=== PATIENT | female | born 1960 | race Caucasian/White ===

== ENCOUNTER → 2016-05-12 | Outpatient (CLI) | payer BC ==
[2014-10-25 14:24] VITALS: BP 149/75
[~2016-05-12] MED LIST: ALPR0.25 PO; CYCL10TA2 PO; DILT240C2 PO; ESOM20CA30 PO; FURO-68 PO; GABA-585 PO; HYDR-2666 PO; LEVO500T38 PO; METF850T2 PO; MOME13HF IH; MOME17SP NS; MONT10TA6 PO; ONDA4TAB7 PO; VENL100T PO
--- NOTE | 2016-05-12 17:17 | KCIC ---
PROCEDURE MR of the left ankle HISTORY Left Achilles tendinitis. Achilles pain. Decreased weight-bearing since January 2016. No known injury. TECHNIQUE Standard noncontrast images are obtained. COMPARISON None FINDINGS Mild thickening and increased signal within the distal Achilles tendon compatible with mild tendinosis. Mild intra substance degenerative type signal but no partial or full-thickness tear. Small effusion within the pre Achilles bursa. Mild soft tissue edema surrounding the distal Achilles tendon. The peroneal tendons are intact and are not dislocated. The anterior talofibular ligament is poorly defined suggesting some scarring but no evidence of acute tear. Calcaneofibular and posterior talofibular ligaments are intact. The anterior inferior tibiofibular ligament is intact. Posterior tibial and flexor tendons are intact. No acute medial ligament injury but there is chronic scarring of the deep fibers of the deltoid ligament. Anterior tibial and extensor tendons are intact. No acute plantar fasciitis. There is mild enthesophyte formation at the plantar aponeurosis attachment. Subtalar joints are patent. Tarsal sinus intact. No significant bone lesion or acute fracture. There is some mild benign marrow change within the distal calcaneus. No talar dome osteochondral lesion. No significant joint effusion. Mild degenerative osteoarthritis is identified. Mild dorsal spurring at the talonavicular joint. There appears to be some loss of the normal longitudinal arch of the foot. IMPRESSION 1. Mild distal Achilles tendinosis without measurable tear or rupture. 2. Anterior talofibular ligament scarring without acute rupture. 3. Scarring of the deep fibers of the medial deltoid ligament. Electronically signed by: Marcos Velez MD (May 12, 2016 17:15:49)
== END | disposition home or self-care (01) ==
LOC: KCIC MRI 16:04
PROVIDERS: ATTEND Podiatrist
DX: M76.62 Achilles tendinitis, left leg (principal); M19.072 Primary osteoarthritis, left ankle and foot; R60.0 Localized edema
CPT/HCPCS: 73721

== ENCOUNTER 2016-10-09 17:41 | Emergency (ER) | payer BC ==
[~2016-10-09 17:41] MED LIST changes: -HYDR-2666 PO; +HYDR-2758 PO; -LEVO500T38 PO; +LEVO500T59 PO
[2016-10-09] MEDS ORDERED: IV NORMAL SALINE 1000ML BAG 1,000 ML IV ONE (18:00)
[2016-10-09] MEDS ORDERED: MORPHINE SULFATE 10 MG/ML VIAL. IV ONE (18:00)
[2016-10-09] MEDS ORDERED: diazePAM 5 MG TABLET PO ONE (18:00)
[2016-10-09 18:15] LABS: BILIRUBIN,URINE NEGATIVE (NEG); GLUCOSE,URINE NEGATIVE (NEG); NITRITE,URINE NEGATIVE (NEG); PROTEIN,URINE NEGATIVE (NEG-TRACE); UROBILINOGEN,URINE 0.2 mg/dL (0.2 mg/dL)
[2016-10-09 18:29] LABS: BASO # 0.2 x10^3/uL (0.0-0.2); BASO % 1 % (0-3); EOS % 1 % (0-3); HEMATOCRIT 35.7 % (36.0-47.0); HEMOGLOBIN 11.7 g/dL (12.0-15.5); LYMPH # 2.6 x10^3/uL (1.0-4.8); LYMPH % 22 % (24-48); MEAN CORPUSCULAR HEMOGLOBIN 27 pg (25-35); MEAN CORPUSCULAR HGB CONC 33 g/dL (31-37); MEAN CORPUSCULAR VOLUME 83 fL (79-100); MONO % 8 % (0-9); NEUT % 68 % (31-73); PLATELET COUNT 299 x10^3/uL (140-400); RED BLOOD COUNT 4.31 x10^6/uL (3.50-5.40); RED CELL DISTRIBUTION WIDTH 15.8 % (11.5-14.5)
[2016-10-09] MEDS ORDERED: CONTRAST GIVEN MC PRN (18:30)
[2016-10-09] MEDS ORDERED: IOHEXOL 300 MG/ML 75 ML VIAL IV ONE (18:30)
[2016-10-09 18:36] LABS: BACTERIA,URINE FEW /HPF (0-FEW); RBC,URINE 0 /HPF (0-2); SQUAMOUS EPITHELIAL CELL,UR MOD /LPF
[2016-10-09 18:44] LABS: CALCIUM 9.5 mg/dL (8.5-10.1); CREATININE 0.8 mg/dL (0.6-1.0); GFR 74.2; POTASSIUM 3.5 mmol/L (3.5-5.1)
[2016-10-09] MEDS ORDERED: oxyCODONE/APAP 5/325 1 TAB TABLET PO ONE (18:45)
[2016-10-09 18:52] LABS: ALBUMIN 3.4 g/dL (3.4-5.0); ALBUMIN/GLOBULIN RATIO 0.9 (1.0-1.7); TOTAL BILIRUBIN 0.2 mg/dL (0.2-1.0); TOTAL PROTEIN 7.4 g/dL (6.4-8.2)
--- NOTE | 2016-10-09 19:36 | RAD ---
Exam performed: CT scan of the abdomen and pelvis with contrast Clinical Indication: Left flank pain for 3 days possible diverticulitis Date of Service: 10/09/2016 comparison: None available Technique: Contiguous helical acquisitions are obtained from the lung bases to the pelvis during intravenous administration of [75 cc of Omnipaque 300]. Sagittal and coronal reformatted images were obtained and reviewed. CT abdomen findings: The lung bases appear essentially clear. Visualized heart is normal. The liver, spleen and pancreas appears unremarkable. Cholecystectomy. Both adrenal glands and bilateral kidneys appear normal with symmetric excretion of contrast via both kidneys. The small bowel loops appear nondilated and unremarkable. Aorta is normal in caliber. There is no retroperitoneal lymphadenopathy or mass lesions. Scattered stool in the colon. No bowel related inflammatory stranding is noted. No obvious stranding is seen in the pericecal region. CT pelvis findings: The pelvic bowel loops are nondilated and unremarkable. Sigmoid diverticulosis . Questionable minimal inflammatory changes in the left lower pelvis The urinary bladder is well distended and normal . No pelvic lymphadenopathy or mass lesion seen. Interrogation of bone windows demonstrates mild loss of height of T11 vertebral body. Sagittal and coronal reformatted images were obtained and reviewed which demonstrate no additional findings. Impression abdomen and pelvis : 1. No acute intra-abdominal or pelvic process is detected. 2. Diffuse colonic diverticulosis with an area of questionable inflammatory changes in the left lower pelvis. Early diverticulitis suspected. 3. Mild loss of height of T11 vertebral body suggesting compression fracture indeterminate age. Correlation with clinical findings and any previous x-rays if available would be useful. If not MRI of the thoracolumbar spine may be obtained to rule out possibility of acute compression fracture. RS Compliance Statement: One or more of the following individualized dose reduction techniques were utilized for this examination: 1. Automated exposure control 2. Adjustment of the mA and/or kV according to patient size 3. Use of iterative reconstruction technique Electronically signed by: Lona Garduno MD (10/09/2016 7:33 PM) [id number]
[2016-10-09] MEDS ORDERED: OXYC-323 PO (20:28)
--- NOTE | 2016-10-09 20:28 | PHYS DOC ---
Past Medical History Past Medical History: Arthritis, Asthma, Hypertension, Other Additional Past Medical Histor: neuropathy; immune deficiency; acid reflux; arrhythmia Past Surgical History: Cholecystectomy, , Tonsillectomy, Other Additional Past Surgical Histo: tubes in ears, L knee sx, cyst removal from head Alcohol Use: None Drug Use: None Adult General Chief Complaint Chief Complaint: ABDOMINAL PAIN HPI HPI Patient is a 56 year old female with history of autoimmune diseases currently on infusion, hypertension, diverticulitis, chronic low back pain, who presents today complaining of left flank/lower rib pain that began 3 days ago. Patient states she was seen by the PCP they did some lab work and her white count was slightly elevated. She states the PCP is concerned she could have diverticulitis and send her to the ED to be examined. Patient denies any nausea vomiting. Denies any urgency frequency or dysuria. Denies any diarrhea. Patient states the pain is worse on movement and deep breathing. She states she has been packing boxes in readiness for moving for the last 2 weeks. She states she has not injured herself. Review of Systems Review of Systems Constitutional: Denies fever or chills [] Eyes: Denies change in visual acuity, redness, or eye pain [] HENT: Denies nasal congestion or sore throat [] Respiratory: Left lower rib pain] Cardiovascular: No additional information not addressed in HPI [] GI: Left flank pain, : Denies dysuria or hematuria [] Musculoskeletal: Denies back pain or joint pain [] Integument: Denies rash or skin lesions [] Neurologic: Denies headache, focal weakness or sensory changes [] Endocrine: Denies polyuria or polydipsia [] Current Medications Current Medications Current Medications Medications (Trade) Dose Ordered Sig/[facility] Start Time Stop Time Status Last Admin Dose Admin Diazepam (Valium) 5 mg 1X ONCE 10/09/16 18:00 10/09/16 18:02 DC 10/09/16 18:26 5 MG Info (Do NOT chart on this entry -- for MONITORING) 1 each PRN DAILY PRN 10/09/16 18:30 10/11/16 18:29 Iohexol (Omnipaque 300 Mg/ml) 75 ml 1X ONCE 10/09/16 18:30 10/09/16 18:31 DC 10/09/16 18:53 75 ML Morphine Sulfate 5 mg 1X ONCE 10/09/16 18:00 10/09/16 18:02 DC Oxycodone/ Acetaminophen (Percocet 5/325) 1 tab 1X ONCE 10/09/16 18:45 10/09/16 18:46 DC Sodium Chloride 1,000 ml @ 1,000 mls/hr 1X ONCE 10/09/16 18:00 10/09/16 18:59 DC 10/09/16 18:27 1,000 MLS/HR Allergies Allergies Allergies Coded Allergies Type Severity Reaction Last Updated Verified Penicillins Allergy Intermediate Hives 06/13/13 Yes Sulfa (Sulfonamide Antibiotics) Allergy Intermediate LOSS OF MOTOR CONTROL Yes Physical Exam Physical Exam Constitutional: Well developed, well nourished, no acute distress, non-toxic appearance. [] HENT: Normocephalic, atraumatic, bilateral external ears normal, oropharynx moist, no oral exudates, nose normal. [] Eyes: PERRLA, EOMI, conjunctiva normal, no discharge. [] Neck: Normal range of motion, no tenderness, supple, no stridor. [] Cardiovascular:Heart rate regular rhythm, no murmur [] Lungs & Thorax: Bilateral breath sounds clear to auscultation [] Abdomen: Bowel sounds normal, soft, no tenderness, no masses, no pulsatile masses. [] Skin: Warm, dry, no erythema, no rash. [] Back: No tenderness, no CVA tenderness. [] Extremities: No tenderness, no cyanosis, no clubbing, ROM intact, no edema. [] Neurologic: Alert and oriented X 3, normal motor function, normal sensory function, no focal deficits noted. [] Psychologic: Affect normal, judgement normal, mood normal. [] Current Patient Data Vital Signs Vital Signs Date Time Temp Pulse Resp B/P (MAP) Pulse Ox O2 Delivery O2 Flow Rate FiO2 10/09/16 18:04 98.3 93 18 154/71 (98) 97 Room Air 98.3 Lab Values Laboratory Tests Test 10/09/16 18:00 10/09/16 18:20 Urine Collection Type Unknown Urine Color Yellow Urine Clarity Clear Urine pH 7.0 Urine Specific [place] 1.015 Urine Protein Negative mg/dL (NEG-TRACE) Urine Glucose (UA) Negative mg/dL (NEG) Urine Ketones (Stick) Negative mg/dL (NEG) Urine Blood Negative (NEG) Urine Nitrite Negative (NEG) Urine Bilirubin Negative (NEG) Urine Urobilinogen Dipstick 0.2 mg/dL (0.2 mg/dL) Urine Leukocyte Esterase Negative (NEG) Urine RBC 0 /HPF (0-2) Urine WBC 1-4 /HPF (0-4) Urine Squamous Epithelial Cells Mod /LPF Urine Bacteria Few /HPF (0-FEW) White Blood Count 12.0 x10^3/uL (4.0-11.0) H Red Blood Count 4.31 x10^6/uL (3.50-5.40) Hemoglobin 11.7 g/dL (12.0-15.5) L Hematocrit 35.7 % (36.0-47.0) L Mean Corpuscular Volume 83 fL (79-100) Mean Corpuscular Hemoglobin 27 pg (25-35) Mean Corpuscular Hemoglobin Concent 33 g/dL (31-37) Red Cell Distribution Width 15.8 % (11.5-14.5) H Platelet Count 299 x10^3/uL (140-400) Neutrophils (%) (Auto) 68 % (31-73) Lymphocytes (%) (Auto) 22 % (24-48) L Monocytes (%) (Auto) 8 % (0-9) Eosinophils (%) (Auto) 1 % (0-3) Basophils (%) (Auto) 1 % (0-3) Neutrophils # (Auto) 8.1 x10^3uL (1.8-7.7) H Lymphocytes # (Auto) 2.6 x10^3/uL (1.0-4.8) Monocytes # (Auto) 0.9 x10^3/uL (0.0-1.1) Eosinophils # (Auto) 0.2 x10^3/uL (0.0-0.7) Basophils # (Auto) 0.2 x10^3/uL (0.0-0.2) Sodium Level 142 mmol/L (136-145) Potassium Level 3.5 mmol/L (3.5-5.1) Chloride Level 103 mmol/L (98-107) Carbon Dioxide Level 28 mmol/L (21-32) Anion Gap 11 (6-14) Blood Urea Nitrogen 10 mg/dL (7-20) Creatinine 0.8 mg/dL (0.6-1.0) Estimated GFR (Cockcroft-Gault) 74.2 BUN/Creatinine Ratio 13 (6-20) Glucose Level 125 mg/dL (70-99) H Calcium Level 9.5 mg/dL (8.5-10.1) Total Bilirubin 0.2 mg/dL (0.2-1.0) Aspartate Amino Transferase (AST) 20 U/L (15-37) Alanine Aminotransferase (ALT) 26 U/L (14-59) Alkaline Phosphatase 149 U/L (46-116) H Total Protein 7.4 g/dL (6.4-8.2) Albumin 3.4 g/dL (3.4-5.0) Albumin/Globulin Ratio 0.9 (1.0-1.7) L Lipase 78 U/L (73-393) Laboratory Tests 10/09/16 18:20 Laboratory Tests 10/09/16 18:20 EKG EKG [] Radiology/Procedures Radiology/Procedures [] Course & Med Decision Making Course & Med Decision Making Pertinent Labs and Imaging studies reviewed. (See chart for details) This is a 56-year-old female patient with history of autoimmune disease, hypertension and diverticulitis who was sent to the ED by PCP for CT scan and lab work as well as chest x-ray due to ongoing left flank/lower rib pain. CBC with a WBC of 12.0, CMP with nothing really acute, urine negative for infection. Left rib pain/PA chest [address] Seay were negative for any acute findings. CT of the abdomen and pelvic with IV contrast as interpreted by radiologist was noted for possible early diverticulitis. Patient does have loss of height in T11 vertebral body suggesting compression fracture indeterminate age. Patient does not have thoracic back pain. She states she has history of chronic lumbar pain and has no injury. Recommended she follows up with her PCP and they can do an outpatient MRI for the thoracic spine. Patient states she already has a prescription for antibiotics called in to the local pharmacy by her PCP for diverticulitis. She was discharged with oxycodone for pain. Dragon Disclaimer Dragon Disclaimer This electronic medical record was generated, in whole or in part, using a voice recognition dictation system. Departure Departure Impression: Primary Impression: Diverticulitis Disposition: 01 HOME, SELF-CARE Condition: STABLE Referrals: APRIL SEBASTIAN MD (PCP) Follow-up with your doctor next week. Patient Instructions: Diverticulitis Additional Instructions: You were seen for left flank/lower rib pain, your CT shows you could have early diverticulitis. You have antibiotics at the local pharmacy, ensure you pick them up and take them as prescribed. Take the pain medicine as needed. Follow- up with your doctor next week. Come back to the ED if symptoms worsen. Scripts Oxycodone/Apap 5-325 (PERCOCET 5-325 MG TABLET) 1 Each Tablet 1-2 TAB PO Q4-6HRS, #10 TAB Prov: RADHA MERIDA APRN 10/09/16 Problem Qualifiers Primary Impression: Diverticulitis Diverticulitis site: unspecified part of intestinal tract Diverticulitis bleeding: without bleeding Diverticulitis complication: without perforation or abscess Qualified Codes: K57.92 - Diverticulitis of intestine, part unspecified, without perforation or abscess without bleeding RADHA MERIDA APRN Oct 09, 2016 20:28
[2016-10-09 20:30] VITALS: BP 128/58
--- NOTE | 2016-10-10 09:12 | RAD ---
Indication left chest pain. No history of trauma A single view of the chest as well as films targeted to left ribs were obtained. The chest is compared to an examination 07/29/2011. The heart and pulmonary vessels appear normal. The lungs are clear of acute infiltrates there is no pleural fluid or pneumothorax. Films of left ribs appear unremarkable. IMPRESSION: Normal single view of the chest. Normal plain films left ribs
== END 2016-10-09 21:00 | disposition home or self-care (01) ==
LOC: ER 17:41
DX: K57.92 Diverticulitis of intestine, part unspecified, without perforation or abscess without bleeding (principal); R07.81 Pleurodynia; M19.90 Unspecified osteoarthritis, unspecified site; J45.909 Unspecified asthma, uncomplicated; I10 Essential (primary) hypertension; G62.9 Polyneuropathy, unspecified; G89.29 Other chronic pain; Z88.0 Allergy status to penicillin; Z90.49 Acquired absence of other specified parts of digestive tract; Z88.2 Allergy status to sulfonamides
CPT/HCPCS: 36415; 71101; 74177; 80053; 81001; 83690; 85027; 96360; 99285; J7030; Q9967

== ENCOUNTER → 2016-11-02 | Outpatient (CLI) | payer BC ==
[2016-10-09 20:30] VITALS: BP 128/58
[~2016-11-02] MED LIST changes: +OXYC-323 PO
--- NOTE | 2016-11-02 13:51 | KCIC ---
Indication: Postmenopausal. Bone mineral analysis of the lumbar spine and left hip was performed. The bone mineral density of the lumbar spine L1-L4 is 1.087 with a T score of 0.4. The bone mineral density of the left hip is 0.877 with a T score of -0.5. IMPRESSION: Normal bone mineral density of the lumbar spine and left hip. Electronically signed by: Ryan Brasher MD (11/02/2016 1:47 PM) [id number]
== END | disposition home or self-care (01) ==
LOC: KCIC DEXA 12:51
PROVIDERS: ATTEND Internal Medicine
DX: N95.9 Unspecified menopausal and perimenopausal disorder (principal); M85.88 Other specified disorders of bone density and structure, other site
CPT/HCPCS: 77080

== ENCOUNTER → 2016-12-21 | Outpatient (CLI) | payer BC ==
[~2016-12-21] MED LIST changes: +BARIUM SULFATE 96% 397 GM ENEMA. PR ONE
--- NOTE | 2016-12-21 10:58 | RAD ---
Barium enema, 12/21/2016: History: Pain, diarrhea, incomplete colonoscopy The preliminary abdominal image demonstrates a nonspecific gas pattern. Surgical clips are present in the right upper quadrant. Barium was introduced into the colon in a retrograde manner under fluoroscopic guidance. 4.2 minutes of fluoroscopy time was utilized. 14 fluoroscopic images were recorded. Several diverticula are present in the sigmoid colon. No constricting colonic lesion is seen. There is a small amount of fecal debris in the colon. The cecum and visualized portions of the terminal ileum are unremarkable. IMPRESSION: 1. Mild sigmoid diverticulosis. 2. Otherwise negative barium enema.
== END | disposition home or self-care (01) ==
LOC: RAD 08:26
PROVIDERS: ATTEND Internal Medicine Gastroenterology
DX: K57.30 Diverticulosis of large intestine without perforation or abscess without bleeding (principal)
CPT/HCPCS: 74270

== ENCOUNTER → 2017-12-09 | Outpatient (CLI) | payer BC ==
[~2017-12-09] MED LIST changes: -BARIUM SULFATE 96% 397 GM ENEMA. PR ONE; -METF850T2 PO; +METF850T8 PO
--- NOTE | 2017-12-09 17:59 | KCIC ---
Bilateral digital screening mammograms: Reason for examination: Routine screening. Comparison is made to previous study dated 08/28/2013. Interpretation was made with the benefit of CAD. The skin and nipples show no abnormalities. No abnormal axillary lymph nodes are seen. The breast parenchyma is heterogeneously dense. (Breast density: Category C) There continues to be some asymmetric parenchyma posterior superiorly in the left breast on oblique view. There are no new dominant masses, suspicious calcifications or architectural distortion. A few benign calcifications are again seen. Impression: No evidence of malignancy. Recommend routine screening. Your patient's mammogram demonstrates that she has dense breast tissue (breast density category C or D), which could hide abnormalities, and if she has other risk factors for breast cancer that have been identified, she might benefit from supplemental screening tests that may be suggested by you as her ordering physician. Dense breast tissue, in and of itself, is a relatively common condition. Therefore, this information is not provided to cause undue concern, but rather to raise your awareness and to promote discussion with your patient regarding the presence of other risk factors, in addition to dense breast tissue. Your patient's mammography results will be sent to her. BI-RADS Category 2: Benign. "Our facility is accredited by the [employer] Mammography Program." This patient's information has been entered into a reminder system for the patient to be notified with the results of her examination and a target date for the next mammogram. Electronically signed by: Meenu Juárez MD (12/09/2017 5:55 PM) [id number]
== END | disposition home or self-care (01) ==
LOC: KCIC MAMMO 11:15
PROVIDERS: ATTEND Internal Medicine
DX: Z12.31 Encounter for screening mammogram for malignant neoplasm of breast (principal); I10 Essential (primary) hypertension; Z90.49 Acquired absence of other specified parts of digestive tract; Z88.2 Allergy status to sulfonamides; Z88.0 Allergy status to penicillin
CPT/HCPCS: 77067

== ENCOUNTER → 2018-12-12 | Outpatient (CLI) | payer BC ==
[~2018-12-12] MED LIST changes: -HYDR-2758 PO; +HYDR-2761 PO; +MONT10TA49 PO; -MONT10TA6 PO; -OXYC-323 PO; +OXYC1TAB15 PO
--- NOTE | 2018-12-12 11:19 | KCIC ---
EXAM: Dual energy x-ray absorptiometry (DEXA). HISTORY: Postmenopausal female presents for osteoporosis screening. COMPARISON: 11/02/2016. TECHNIQUE: Dual energy x-ray absorptiometry of the lumbar spine and left hip was performed. Calculation of bone mineral density based on standard deviations above or below the expected young adult normal value (T-score) was completed. FINDINGS: The average bone mineral density in the 1st through 4th lumbar vertebrae is 1.061 g/cmxcm, corresponding with a T-score of 0.1. In a 2.4% decrease in density of the lumbar spine compared to the prior study. The average total bone mineral density in the left hip is 0.894 g/cmxcm, corresponding with a T-score of -0.4. There has been a 1.9% increase in density of the left hip compared to the prior study. IMPRESSION: Normal bone mineral density. Note: Definitions established by the World Health Organization: 1. Normal: T-score is -1.0 or above. 2. Osteopenia: T-score is between -1.0 and -2.5 . 3. Osteoporosis: T-score is -2.5 or below. Electronically signed by: Irene Mclean MD (12/12/2018 11:16 AM) [facility]
--- NOTE | 2018-12-12 13:41 | KCIC ---
Bilateral digital screening mammograms with 3-D tomosynthesis: Reason for examination: Routine screening. Comparison is made to previous studies dated 12/09/2017 and 08/28/2013. Bilateral mammograms in CC and oblique projections were obtained with 2-D imaging and 3-D tomosynthesis imaging on a Siemens Inspiration unit and reviewed on the workstation. Interpretation was made with the benefit of CAD. The skin and nipples show no abnormalities. No abnormal axillary lymph nodes are seen. The breast parenchyma shows scattered fatty and fibroglandular density. (Breast density: Category B.) There are no dominant masses, suspicious calcifications or architectural distortion. Benign calcifications are present. Impression: No evidence of malignancy. Recommend routine screening. BI-RAD Category 2: Benign. "Our facility is accredited by the [employer] Mammography Program." This patient's information has been entered into a reminder system for the patient to be notified with the results of her examination and a target date for the next mammogram. Electronically signed by: Meenu Juárez MD (12/12/2018 1:38 PM) [id number]
== END | disposition home or self-care (01) ==
LOC: KCIC DEXA 09:48
PROVIDERS: ATTEND Internal Medicine
DX: Z12.31 Encounter for screening mammogram for malignant neoplasm of breast (principal); Z13.820 Encounter for screening for osteoporosis; N64.89 Other specified disorders of breast; Z78.0 Asymptomatic menopausal state
CPT/HCPCS: 77063; 77067; 77080

== ENCOUNTER → 2019-01-18 | Outpatient (CLI) | payer BC ==
--- NOTE | 2019-01-18 17:19 | KCIC ---
LUMBAR SPINE MIN 4V, HIP RIGHT 2 VIEW History: Low back pain. Right lumbar radiculopathy. Right hip pain. Technique: 5 views lumbar spine 2 views right hip Comparison: Barium enema December 21, 2016 Findings: Lumbar spine: Normal alignment. T11 chronic appearing compression fracture, unchanged. Otherwise, normal vertebral body height. No acute fracture. Right sacroiliac increased sclerosis with hypertrophic changes and subchondral cystic changes Multilevel lumbar degenerative disc changes most prominent L4-L5. Multilevel facet arthropathy. Right hip: Normal alignment. No fracture. Mild right hip DJD. Impression: 1. Moderate right sacroiliac degeneration, similar compared to prior, may represent DJD or sacroiliitis. Recommend clinical correlation. 2. Multilevel lumbar spondylosis. 3. Chronic T11 compression fracture. 4. Mild right hip DJD. Electronically signed by: Fercho Forman DO (01/18/2019 5:16 PM) [facility]
== END | disposition home or self-care (01) ==
LOC: KCIC 11:20
PROVIDERS: ATTEND Internal Medicine
DX: M84.48XA Pathological fracture, other site, initial encounter for fracture (principal); M47.26 Other spondylosis with radiculopathy, lumbar region; M46.86 Other specified inflammatory spondylopathies, lumbar region; M16.11 Unilateral primary osteoarthritis, right hip; M89.38 Hypertrophy of bone, other site
CPT/HCPCS: 72110; 73502

== ENCOUNTER 2019-07-14 17:58 | Emergency (ER) | payer BC ==
[~2019-07-14] VITALS: Ht 144.8 cm; Wt 72.2 kg
--- NOTE | 2019-07-14 18:39 | PHYS DOC ---
Past Medical History Past Medical History: Arthritis, Asthma, Hypertension, Other Additional Past Medical Histor: neuropathy; immune deficiency; acid reflux; arrhythmia Past Surgical History: Cholecystectomy, , Tonsillectomy, Other Additional Past Surgical Histo: tubes in ears, L knee sx, cyst removal from head Smoking Status: Current Every Day Smoker Additional Information: 0.25 PPD Alcohol Use: None Drug Use: None General Adult EDM: Chief Complaint: MECHANICAL FALL HPI: HPI: Patient is a 59 year old female who presents with complaint of pain in numerous locations after reportedly falling last night at about 10:30 PM. Patient states that she had been outside and tripped over a bag of mulch. Patient states she fell onto her left shoulder and onto her back. She states that she also struck her head. She denies any loss of consciousness. She rates the pain at an 8 out of 10. Patient states the pain is worsened with motion. She also complains of left knee pain but is able to ambulate without difficulty with no signs of limping.[] Review of Systems: Review of Systems: Constitutional: Denies fever or chills. [] Respiratory: Denies cough or shortness of breath. [] Cardiovascular: Denies chest pain or edema. [] GI: Denies abdominal pain, nausea, vomiting, bloody stools or diarrhea. [] Musculoskeletal: Complains of neck and back pain along with bilateral shoulder, left wrist and left knee pain. [] Integument: Denies rash. [] Neurologic: Complains of headache without focal weakness or sensory changes. [] A full 10 point review of systems has been reviewed and is otherwise negative. Heart Score: Risk Factors: Risk Factors: DM, Current or recent (<one month) smoker, HTN, HLP, family history of CAD, obesity. Risk Scores: Score 0 - 3: 2.5% MACE over next 6 weeks - Discharge Home Score 4 - 6: 20.3% MACE over next 6 weeks - Admit for Clinical Observation Score 7 - 10: 72.7% MACE over next 6 weeks - Early Invasive Strategies Allergies: Allergies: Allergies Coded Allergies Type Severity Reaction Last Updated Verified Penicillins Allergy Intermediate Hives 06/13/13 Yes Sulfa (Sulfonamide Antibiotics) Allergy Intermediate LOSS OF MOTOR CONTROL 06/13/13 Yes Physical Exam: PE: Constitutional: Well developed, well nourished, no acute distress, non-toxic appearance. [] HENT: Normocephalic, atraumatic, bilateral external ears normal, oropharynx moist, no oral exudates, nose normal. [] Eyes: PERRLA, EOMI, conjunctiva normal, no discharge. [] Neck: Normal range of motion, supple, no stridor. [] Cardiovascular: Regular rate and rhythm[] Lungs & Thorax: Bilateral breath sounds clear to auscultation [] Abdomen: Bowel sounds normal, soft, no tenderness. [] Skin: Warm, dry, no erythema, no rash. No external signs of trauma. [] Back: Positive tenderness is reported throughout the thoracic and lumbar spine without signs of trauma. [] Extremities: Tenderness is reported in numerous locations without signs of trauma, no cyanosis, no clubbing, ROM intact, no edema. [] Neurologic: Alert and oriented X 3, no focal deficits noted. [] Current Patient Data: Vital Signs: Vital Signs Date Time Temp Pulse Resp B/P (MAP) Pulse Ox O2 Delivery O2 Flow Rate FiO2 07/14/19 18:05 99.6 94 16 152/70 (97) 97 Room Air 99.6 EKG: EKG: [] Radiology/Procedures: Radiology/Procedures: [] Impression: PROCEDURE: THORACIC SPINE 3V LUMBAR SPINE 2-3V, THORACIC SPINE 3V 07/14/2019 6:28 PM INDICATION: Fall COMPARISON: None available. TECHNIQUE: 3 views of the thoracic spine and 4 views of the lumbar spine are provided. FINDINGS/ IMPRESSION: 1. Superior endplate compression deformity is identified involving T11 with 25 percent height loss. This finding is age indeterminate. There is mild multilevel disc height loss with moderate anterior marginal osteophytosis compatible with mild thoracic spondylosis. Visualized lungs and mediastinum appear clear. Adjacent ribs appear intact. 2. Alignment of the lumbar spine is normal. Vertebral body heights are maintained. No definite acute fracture is visualized. Mild facet arthropathy. Mild L4-L5 disc height loss. Mild anterior marginal osteophytosis compatible with mild lumbar spondylosis. Electronically signed by: Kate Marinelli MD (07/14/2019 7:02 PM) [facility] PROCEDURE: CT HEAD AND CERVICAL SPINE WO CT head and cervical spine without contrast History: Fall Technique: Noncontrast CT imaging was performed of the head and cervical spine. Multiplanar reconstruction images are submitted. Exposure: One or more of the following individualized dose reduction techniques were utilized for this examination: 1. Automated exposure control 2. Adjustment of the mA and/or kV according to patient size 3. Use of iterative reconstruction technique. Head CT Comparison: None Findings: No acute extra-axial or parenchymal hemorrhage is identified. There is no significant intra-axial mass effect, midline shift, or extra-axial fluid collection. The simpson-white differentiation of the major vascular territories is preserved. The ventricles, sulci, and cisterns are within normal limits in size and configuration. The mastoid air cells and the visualized paranasal sinuses are aerated. There have been nasoantral windows bilaterally. There is no significant focal calvarial abnormality. Impression: 1. No acute intracranial abnormality is identified. Cervical spine CT Comparison: None Findings: No acute cervical spine fracture is identified. Vertebral body stature and AP alignment are within normal limits. Atlanto-axial distance is within normal limits. There is appropriate alignment of lateral masses of C1 relative to C2. Occipital condylar-C1 relationship is maintained. There is [id number] degenerative disc disease C6-7 and to lesser degree at C5-6. There is mild spondylosis C6-7, likely mild central canal stenosis at this level about 9-10 mm. There is multilevel cervical facet degenerative change. Impression: 1. No acute cervical spine fracture is identified. 2. There is degenerative disc disease and spondylosis greatest at C6-7, likely mild spinal stenosis at this level. Electronically signed by: Raimundo Hamm MD (07/14/2019 7:20 PM) [facility] DICTATED and SIGNED BY: RAIMUNDO HAMM MD DATE: 07/14/191919 Course & Med Decision Making: Course & Med Decision Making Pertinent Labs and Imaging studies reviewed. (See chart for details) [] Dragon Disclaimer: Dragon Disclaimer: This electronic medical record was generated, in whole or in part, using a voice recognition dictation system. Departure Departure Impression: Primary Impression: Head injury Qualified Codes: S09.90XA - Unspecified injury of head, initial encounter Additional Impressions: Left wrist sprain Qualified Codes: S63.502A - Unspecified sprain of left wrist, initial encounter Shoulder contusion Qualified Codes: S40.012A - Contusion of left shoulder, initial encounter Strain, dorsal Disposition: 01 HOME, SELF-CARE Condition: STABLE Referrals: APRIL SEBASTIAN MD (PCP) Patient Instructions: Contusion, Head Injury, Adult, Sprain Scripts Orphenadrine Citrate (ORPHENADRINE CITRATE) 100 Mg Tablet.er 1 TAB PO BID PRN for MUSCLE SPASMS, #14 TAB Prov: DOC MASCORRO Jr. DO 07/14/19 Diclofenac Sodium (DICLOFENAC SODIUM) 50 Mg Tablet.dr 1 TAB PO BID PRN for PAIN, #20 TAB Prov: DOC MASCORRO Jr. DO 07/14/19 DOC MASCORRO Jr. DO Jul 14, 2019 18:38
--- NOTE | 2019-07-14 19:02 | RAD ---
SHOULDER 2+V LEFT 07/14/2019 6:28 PM INDICATION: Fall COMPARISON: None available. TECHNIQUE: 3 views of the left shoulder are provided. FINDINGS/ IMPRESSION: There is no acute fracture or dislocation. Mild acromioclavicular osteoarthrosis with inferiorly projecting osteophyte. Mild glenohumeral osteoarthrosis.. Bone mineralization is within normal limits. Regional soft tissues are within normal limits. There is no soft tissue gas or osseous erosion. No radiopaque foreign body. Electronically signed by: Kate Marinelli MD (07/14/2019 6:59 PM) [facility]
--- NOTE | 2019-07-14 19:03 | RAD ---
WRIST 3V LEFT 07/14/2019 6:28 PM INDICATION: Fall COMPARISON: None available. TECHNIQUE: 3 views of the left wrist are provided. FINDINGS/ IMPRESSION: There is no acute fracture or dislocation. Joint spaces are maintained. Bone mineralization is within normal limits. Regional soft tissues are within normal limits. There is no soft tissue gas or osseous erosion. No radiopaque foreign body. Electronically signed by: Kate Marinelli MD (07/14/2019 7:00 PM) LUIZ
--- NOTE | 2019-07-14 19:05 | RAD ---
LUMBAR SPINE 2-3V, THORACIC SPINE 3V 07/14/2019 6:28 PM INDICATION: Fall COMPARISON: None available. TECHNIQUE: 3 views of the thoracic spine and 4 views of the lumbar spine are provided. FINDINGS/ IMPRESSION: 1. Superior endplate compression deformity is identified involving T11 with 25 percent height loss. This finding is age indeterminate. There is mild multilevel disc height loss with moderate anterior marginal osteophytosis compatible with mild thoracic spondylosis. Visualized lungs and mediastinum appear clear. Adjacent ribs appear intact. 2. Alignment of the lumbar spine is normal. Vertebral body heights are maintained. No definite acute fracture is visualized. Mild facet arthropathy. Mild L4-L5 disc height loss. Mild anterior marginal osteophytosis compatible with mild lumbar spondylosis. Electronically signed by: Kate Marinelli MD (07/14/2019 7:02 PM) [facility]
[2019-07-14] MEDS: KETOROLAC 60 MG/2 ML VIAL. IM ONE (19:13)
--- NOTE | 2019-07-14 19:22 | RAD ---
CT head and cervical spine without contrast History: Fall Technique: Noncontrast CT imaging was performed of the head and cervical spine. Multiplanar reconstruction images are submitted. Exposure: One or more of the following individualized dose reduction techniques were utilized for this examination: 1. Automated exposure control 2. Adjustment of the mA and/or kV according to patient size 3. Use of iterative reconstruction technique. Head CT Comparison: None Findings: No acute extra-axial or parenchymal hemorrhage is identified. There is no significant intra-axial mass effect, midline shift, or extra-axial fluid collection. The simpson-white differentiation of the major vascular territories is preserved. The ventricles, sulci, and cisterns are within normal limits in size and configuration. The mastoid air cells and the visualized paranasal sinuses are aerated. There have been nasoantral windows bilaterally. There is no significant focal calvarial abnormality. Impression: 1. No acute intracranial abnormality is identified. Cervical spine CT Comparison: None Findings: No acute cervical spine fracture is identified. Vertebral body stature and AP alignment are within normal limits. Atlanto-axial distance is within normal limits. There is appropriate alignment of lateral masses of C1 relative to C2. Occipital condylar-C1 relationship is maintained. There is [id number] degenerative disc disease C6-7 and to lesser degree at C5-6. There is mild spondylosis C6-7, likely mild central canal stenosis at this level about 9-10 mm. There is multilevel cervical facet degenerative change. Impression: 1. No acute cervical spine fracture is identified. 2. There is degenerative disc disease and spondylosis greatest at C6-7, likely mild spinal stenosis at this level. Electronically signed by: Terrell Corcoran MD (07/14/2019 7:20 PM) [facility]
[2019-07-14 19:45] VITALS: BP 142/61
[2019-07-14] MEDS ORDERED: ORPH100T PO (19:57)
[2019-07-14] MEDS ORDERED: DICL50TA4 PO (19:57)
== END 2019-07-14 20:21 | disposition home or self-care (01) ==
LOC: ER 17:58
DX: S63.502A Unspecified sprain of left wrist, initial encounter (principal); S40.012A Contusion of left shoulder, initial encounter; S09.90XA Unspecified injury of head, initial encounter; R51 Headache; M25.562 Pain in left knee; M25.511 Pain in right shoulder; M54.2 Cervicalgia; M54.5 Low back pain; M54.6 Pain in thoracic spine; I10 Essential (primary) hypertension; J45.909 Unspecified asthma, uncomplicated; K21.9 Gastro-esophageal reflux disease without esophagitis; Z90.49 Acquired absence of other specified parts of digestive tract; F17.200 Nicotine dependence, unspecified, uncomplicated; Z88.0 Allergy status to penicillin; Z88.2 Allergy status to sulfonamides; W18.09XA Striking against other object with subsequent fall, initial encounter; Y93.89 Activity, other specified; Y92.89 Other specified places as the place of occurrence of the external cause; Y99.8 Other external cause status
CPT/HCPCS: 70450; 72072; 72100; 72125; 73030; 73110; 96372; 99285; J1885

== ENCOUNTER → 2019-12-25 | Outpatient (CLI) | payer BC ==
[~2019-12-25] MED LIST changes: +DICL50TA4 PO; +ORPH100T PO
--- NOTE | 2019-12-25 14:33 | KCIC ---
Examination: MRI of the right shoulder without contrast HISTORY: History of adhesive capsulitis COMPARISON: None TECHNIQUE: Multiplanar multisequence MR imaging of the right shoulder performed without contrast. FINDINGS: The long head of the biceps tendon within the bicipital groove. The attachment of the long head the biceps tendon to the superior labral anchor grossly appears intact. Moderate increased T2 signal identified in the subscapularis, supraspinatus, infraspinatus tendon likely tendinosis. There is full-thickness tear of the supraspinatus, infraspinatus tendons with tendon retraction up to the level of the glenoid with extension of fluid in the subacromial subdeltoid bursa. There is increased T2 signal identified in the interstitial fibers of the subscapularis tendon probably interstitial tear. The visualized labrum grossly appears unremarkable There is obscuration of fat in the rotator interval. The acromion is type II. Moderate degenerative changes identified in the acromioclavicular joint, glenohumeral joint. IMPRESSION: 1. Full-thickness tear of the supraspinatus and infraspinatus tendon with tendon retraction up to the level of the glenoid. Probable interstitial tear subscapularis tendon. 2. Moderate tendinosis of the rotator cuff. 3. Changes of adhesive capsulitis. 4. Moderate degenerative changes acromioclavicular joint, glenohumeral joint. Electronically signed by: Darrel Keyes MD (12/25/2019 2:30 PM) [id number]
== END ==
LOC: KCIC MRI 13:00
PROVIDERS: ATTEND Internal Medicine Rheumatology
DX: M75.121 Complete rotator cuff tear or rupture of right shoulder, not specified as traumatic (principal); M75.01 Adhesive capsulitis of right shoulder; M75.81 Other shoulder lesions, right shoulder; M19.011 Primary osteoarthritis, right shoulder
CPT/HCPCS: 73221

== ENCOUNTER → 2020-05-14 | Outpatient (CLI) | payer BC ==
--- NOTE | 2020-05-14 15:22 | KCIC ---
EXAM: XR CHEST 2V 05/14/2020 10:22 AM CLINICAL INDICATION: Low-grade fever, mean deficiency, fatigue. Intubated 01/09/2020 COMPARISON: 01/18/2020 TECHNIQUE: PA and lateral views of the chest FINDINGS: The endotracheal tube and nasogastric tube have been removed. The heart and mediastinum ar e normal. Bilateral airspace opacities have resolved. The lungs are clear. No pleural effusion or pne umothorax. Unchanged T11 compression fracture with moderate height loss and degenerative disc disease in the thoracic spine. IMPRESSION: Interval resolution of airspace opacities. No acute cardiopulmonary abnormality. Electronically signed by: Jzamin Loya MD (05/14/2020 3:19 PM) [id number]
--- NOTE | 2020-05-14 18:05 | KCIC ---
BILATERAL SCREENING MAMMOGRAM, 3-D History: Routine screening. Comparison: Bilateral mammogram December 12, 2018 and 2017. Technique: MLO and CC digital tomosynthesis (3D) images obtained. Radiologist reviewed these images on dedicated workstation. Findings: Breast Tissue Density B : There are scattered areas of fibroglandular density. Benign calcifications are redemonstrated. There are no dominant masses, suspicious microcalcifications or architectural distortion. IMPRESSION: No mammographic evidence of malignancy. Recommend routine screening. BI-RADS category 2: Benign findings. The images were reviewed with computer-aided detection. Patient information is entered into reminder system with a target due date for the next screening wilfrido mogram. Mammography is the most sensitive method for finding small breast cancers, but it does not detect the m all and is not a substitute for careful clinical examination. A negative mammogram does not negate a clinically suspicious finding and should not result in delay in biopsying a clinically suspicious a bnormality. "Our facility is accredited by the [employer] Mammography Program." Electronically signed by: Kyle Birch MD (05/14/2020 6:02 PM) [email or web address]
== END ==
LOC: KCIC MAMMO 10:19
PROVIDERS: ATTEND Internal Medicine
DX: Z12.31 Encounter for screening mammogram for malignant neoplasm of breast (principal); R53.83 Other fatigue
CPT/HCPCS: 71046; 77063; 77067

== ENCOUNTER → 2020-05-22 | Outpatient (CLI) | payer BC ==
--- NOTE | 2020-05-22 15:28 | KCIC ---
CT chest without contrast dated 05/22/2020. No comparison available. CLINICAL INDICATION: Shortness of breath low-grade fever. TECHNIQUE: Contiguous axial imaging of the chest performed. No contrast administered. One or more of the following individualized dose reduction techniques were utilized for this examinat ion: 1. Automated exposure control 2. Adjustment of the mA and/or kV according to patient size 3. Use of iterative reconstruction technique. FINDINGS: Heart size is within normal limits. No pericardial effusion. No mediastinal, hilar or axillary lympha denopathy. Borderline enlarged pretracheal lymph node measuring about 6 mm short axis. Thyroid gland is unremarkable. Central airways are patent. Lungs are clear. No consolidation or pleural effusion. No suspicious pulm onary nodule or mass. Mild nonspecific bronchial wall thickening. Images of upper abdomen are unremarkable. Gallbladder surgically absent. Bone windows show mild wedge compression deformity of T11, likely remote. Multilevel spondylosis. IMPRESSION: 1. No acute abnormality of chest. 2. Mild wedge compression deformity of T11, likely remote. Electronically signed by: Marocs Dooley MD (05/22/2020 3:26 PM) [id number]
== END ==
LOC: KCIC CT 13:52
PROVIDERS: ATTEND Allergy & Immunology
DX: D80.3 Selective deficiency of immunoglobulin G [IgG] subclasses (principal); J45.20 Mild intermittent asthma, uncomplicated; M43.8X4 Other specified deforming dorsopathies, thoracic region; M47.814 Spondylosis without myelopathy or radiculopathy, thoracic region; Z90.49 Acquired absence of other specified parts of digestive tract
CPT/HCPCS: 71250

== ENCOUNTER → 2020-06-06 | Outpatient (CLI) | payer BC ==
--- NOTE | 2020-06-06 15:01 | KCIC ---
EXAM: CT Maxillofacial without IV contrast INDICATION: Reason: Chronic sinusitis, drainage, itchy eyes. / Spl. Instructions: / History: TECHNIQUE: Multi-detector row CT images were obtained through the maxillofacial region without the u se of IV contrast. Post-processing reconstructed images were obtained for interpretation. All CT scan s performed at this facility utilize dose optimization techniques as appropriate to the exam, includi ng the following: Automated exposure control and adjustment of the mA and/or KV according to patient size (this includes techniques or standardized protocols for targeted exams where dose is indication/ reason for exam). COMPARISON: None FINDINGS: OSSEOUS: No evidence of fracture or bone destruction. VISUALIZED INTRACRANIAL STRUCTURES: Unremarkable. ORBITS: Orbital contents are unremarkable.. SINUSES: Surgical changes from endoscopic sinus surgery with resection of the bilateral ostiomeatal complexes, and resection of the bilateral inferior turbinates is present. There is a right conchal bu llosa. The nasal septum is midline. Mucosal thickening is minimally present in the bilateral maxillar y antra with minimal cross on the right. The mastoids are clear on the left, show trace effusion on t he right. Middle ear cavities are clear. SOFT TISSUES: Unremarkable. IMPRESSION: Evidence of previous endoscopic sinus surgery with minimal residual mucosal thickening and froth in t he maxillary sinus on the right. Electronically signed by: Itzel Eduardo MD (06/06/2020 2:58 PM) [id number]
== END ==
LOC: KCIC CT 12:19
PROVIDERS: ATTEND Allergy & Immunology
DX: J32.8 Other chronic sinusitis (principal); H57.89 Other specified disorders of eye and adnexa
CPT/HCPCS: 70486

== ENCOUNTER → 2020-08-30 | Outpatient (CLI) | payer BC ==
[~2020-08-30] MED LIST changes: +IOHEXOL 240 MG/ML 50ML VIAL. PO ONE; +IOHEXOL 300 MG/ML 100ML VIAL. IV ONE
--- NOTE | 2020-08-30 10:45 | KCIC ---
Examination: CT abdomen pelvis with oral and IV contrast HISTORY: History right upper quadrant pain COMPARISON: 10/09/2016 TECHNIQUE: Axial CT images of the abdomen pelvis were performed with oral and IV contrast. Coronal an d sagittal reformats are performed Exposure: One or more of the following individualized dose reduction techniques were utilized for thi s examination: 1. Automated exposure control 2. Adjustment of the mA and/or kV according to patient size 3. Use of iterative reconstruction technique FINDINGS: The bibasilar lungs are clear. No evidence of free air identified in the abdomen. The liver, spleen, adrenals grossly appears unremarkable cholecystectomy changes. The stomach is mildly distended. The v isualized pancreas grossly appears unremarkable. The small bowel is nondilated. Feces and gas noted i n the colon. Sigmoid colon diverticulosis. Urinary bladder is mildly distended.The bilateral kidneys enhance symmetrically. Mild degenerative changes thoracolumbar spine. IMPRESSION: 1. No acute intra-abdominal findings. 2. Sigmoid colon diverticulosis. Electronically signed by: Darrel Keyes MD (08/30/2020 10:43 AM) [id number]
== END ==
LOC: KCIC CT 08:23
PROVIDERS: ATTEND Internal Medicine Infectious Disease
DX: D80.8 Other immunodeficiencies with predominantly antibody defects (principal); K57.30 Diverticulosis of large intestine without perforation or abscess without bleeding
CPT/HCPCS: 74177; Q9966; Q9967

== ENCOUNTER → 2020-12-18 | Outpatient (CLI) | payer BC ==
[~2020-12-18] MED LIST changes: -IOHEXOL 240 MG/ML 50ML VIAL. PO ONE; -IOHEXOL 300 MG/ML 100ML VIAL. IV ONE
--- NOTE | 2020-12-19 14:49 | KCIC ---
XR HAND_LEFT 3 VIEWS 12/18/2020 1:13 PM INDICATION: Left hand pain and swelling, no known injury COMPARISON: None available. TECHNIQUE: 3 views of the left hand are provided. FINDINGS/ IMPRESSION: There is no acute fracture or dislocation. Joint spaces are maintained. Ossific fragment is identifie d adjacent to the proximal interphalangeal joint of the third digit, likely sequela of remote trauma. Bone mineralization is within normal limits. Regional soft tissues are within normal limits. There i s no soft tissue gas or osseous erosion. No radiopaque foreign body. Electronically signed by: Kate Marinelli MD (12/19/2020 2:47 PM) [id number]
== END ==
LOC: KCIC 13:05
PROVIDERS: ATTEND Internal Medicine
DX: M79.642 Pain in left hand (principal); M79.89 Other specified soft tissue disorders; Z18.89 Other specified retained foreign body fragments
CPT/HCPCS: 73130

== ENCOUNTER 2021-05-10 21:09 | Emergency (ER) | payer BC ==
[~2021-05-10] VITALS: Ht 144.8 cm; Wt 73.1 kg
[~2021-05-10 21:09] MED LIST changes: +CYCL10TA19 PO; -CYCL10TA2 PO; -MOME17SP NS; +MOME17SP5 NS
[2021-05-10] MEDS ORDERED: CYCLOBENZAPRINE 10 MG TABLET. PO ONE (21:45)
[2021-05-10] MEDS ORDERED: HYDROcodone/APAP 7.5/325MG 1 TAB TABLET PO ONE (21:45)
--- NOTE | 2021-05-10 22:16 | RAD ---
EXAM: Chest, abdomen and pelvis CT with intravenous contrast. HISTORY: Fall and pain. TECHNIQUE: Computed tomographic images of the chest, abdomen and pelvis were obtained following the a dministration of intravenous contrast. Multiplanar reformatting was performed. *One or more of the following individualized dose reduction techniques were utilized for this examina tion: 1. Automated exposure control. 2. Adjustment of the mA and/or kV according to patient size. 3. Use of iterative reconstruction technique. COMPARISON: 08/30/2020. FINDINGS: Chest: The heart is normal in size. The aorta is normal in caliber. There is coronary arter y calcification. There is no lymphadenopathy. There is no pneumothorax or pleural effusion. There is aspirated mucus within the trachea. There is lingular, right middle lobe bilateral basilar and silver wrapper ior dependent atelectasis. There is additional linear atelectasis along the pleural fissures. No disp laced rib fracture is seen. There is a moderate chronic appearing T11 compression fracture. No acute vertebral body fracture is seen. There is degenerative change throughout the thoracic spine. Abdomen and pelvis: No focal hepatic lesion is seen. The gallbladder is absent. The pancreas, spleen, adrenal glands and kidneys are unremarkable. There is no appendicitis. There is no bowel obstruction . There is no abnormal bowel wall thickening. There is sigmoid diverticulosis. There is no evidence o f diverticulitis. The bladder, uterus and adnexal regions are unremarkable. The aorta is normal in ca liber. There is a prominent aortocaval lymph node measuring 1.2 cm. There is lumbar hyperlordosis. Th ere is minimal anterolisthesis of L4 on L5. IMPRESSION: 1. No convincing acute thoracic, abdominal or pelvic finding. 2. Sigmoid diverticulosis. 3. Moderate chronic appearing T11 compression fracture. 4. Multifocal atelectasis or pleural parenchymal scarring. Electronically signed by: Irene Mclean MD (05/10/2021 10:14 PM) [facility]
--- NOTE | 2021-05-10 22:23 | PHYS DOC ---
Past Medical History Past Medical History: Arthritis, Asthma, Hypertension, Other Additional Past Medical Histor: neuropathy; immune deficiency; acid reflux; arrhythmia Past Surgical History: No Surgical History, Cholecystectomy, , Knee Replacement Additional Past Surgical Histo: SHOULDER/ Smoking Status: Current Every Day Smoker Alcohol Use: None Drug Use: None General Adult EDM: Chief Complaint: MECHANICAL FALL HPI: HPI: Patient is a 61 year old female with a history of hypertension, asthma, who presents to the ED today complaining of 10 out of 10 left lower rib pain, left upper abdomen pain, flank pain and mid back pain, symptoms began on after she slipped on ice and fell on concrete. Patient denies any loss of consciousness. States the pain is worse on deep breaths as well as touching the affected regions. Denies any head pain, neck pain, low back pain, hip pain. Denies any hematuria. Review of Systems: Review of Systems: Constitutional: Denies fever or chills. [] Eyes: Denies change in visual acuity. [] HENT: Denies nasal congestion or sore throat. [] Respiratory: Denies cough or shortness of breath. [] Cardiovascular: Denies chest pain or edema. [] GI: Reports left upper quadrant pain, denies nausea, vomiting, bloody stools or diarrhea. [] : Denies dysuria. [] Musculoskeletal: Reports mid back pain, flank pain Integument: Denies rash. [] Neurologic: Denies headache, focal weakness or sensory changes. [] Endocrine: Denies polyuria or polydipsia. [] Lymphatic: Denies swollen glands. [] Psychiatric: Denies depression or anxiety. [] Heart Score: C/O Chest Pain: N/A Risk Factors: Risk Factors: DM, Current or recent (<one month) smoker, HTN, HLP, family history of CAD, obesity. Risk Scores: Score 0 - 3: 2.5% MACE over next 6 weeks - Discharge Home Score 4 - 6: 20.3% MACE over next 6 weeks - Admit for Clinical Observation Score 7 - 10: 72.7% MACE over next 6 weeks - Early Invasive Strategies Current Medications: Current Medications Medications (Trade) Dose Ordered Sig/Jyoti Start Time Stop Time Status Last Admin Dose Admin Acetaminophen/ Hydrocodone Bitart (Lortab 7.5/325) 1 tab 1X ONCE 05/10/21 21:45 05/10/21 21:46 DC Cyclobenzaprine HCl (Flexeril) 10 mg 1X ONCE 05/10/21 21:45 05/10/21 21:46 DC Allergies: Allergies: Allergies Coded Allergies Type Severity Reaction Last Updated Verified Penicillins Allergy Intermediate Hives 05/10/21 Yes Sulfa (Sulfonamide Antibiotics) Adverse Reaction Intermediate LOSS OF MOTOR CONTROL 05/10/21 Yes Physical Exam: PE: Constitutional: Well developed, well nourished, no acute distress, non-toxic davonte earance. [] HENT: Normocephalic, atraumatic, bilateral external ears normal, oropharynx moist, no oral exudates, nose normal. [] Eyes: PERRLA, EOMI, conjunctiva normal, no discharge. [] Neck: Normal range of motion, no tenderness, supple, no stridor. [] Cardiovascular:Heart rate regular rhythm, no murmur [] Lungs & Thorax: Bruising noted on the left lower ribs midclavicular line approximately ribs 8, and 9 with tenderness to the region. bilateral breath sounds clear to auscultation [] Abdomen: Bowel sounds normal, soft, contusion noted on the left upper abdomen with tenderness over the contusion area, no masses, no pulsatile masses. [] Skin: Warm, dry, no erythema, no rash. [] Back: No tenderness, no CVA tenderness. [] Extremities: No tenderness, no cyanosis, no clubbing, ROM intact, no edema. [] Neurologic: Alert and oriented X 3, normal motor function, normal sensory function, no focal deficits noted. [] Psychologic: Affect normal, judgement normal, mood normal. [] Current Patient Data: Vital Signs: Vital Signs Date Time Temp Pulse Resp B/P (MAP) Pulse Ox O2 Delivery O2 Flow Rate FiO2 05/10/21 21:19 98.1 102 20 128/64 (85) 100 Room Air 98.1 EKG: EKG: [] Radiology/Procedures: Radiology/Procedures: []PROCEDURE: CT CHEST ABDOMEN PELVIS WO EXAM: Chest, abdomen and pelvis CT with intravenous contrast. HISTORY: Fall and pain. TECHNIQUE: Computed tomographic images of the chest, abdomen and pelvis were obtained following the administration of intravenous contrast. Multiplanar reformatting was performed. *One or more of the following individualized dose reduction techniques were utilized for this examination: 1. Automated exposure control. 2. Adjustment of the mA and/or kV according to patient size. 3. Use of iterative reconstruction technique. COMPARISON: 08/30/2020. FINDINGS: Chest: The heart is normal in size. The aorta is normal in caliber. There is coronary artery calcification. There is no lymphadenopathy. There is no pneumothorax or pleural effusion. There is aspirated mucus within the trachea. There is lingular, right middle lobe bilateral basilar and posterior dependent atelectasis. There is additional linear atelectasis along the pleural fissures. No displaced rib fracture is seen. There is a moderate chronic appearing T11 compression fracture. No acute vertebral body fracture is seen. There is degenerative change throughout the thoracic spine. Abdomen and pelvis: No focal hepatic lesion is seen. The gallbladder is absent. The pancreas, spleen, adrenal glands and kidneys are unremarkable. There is no appendicitis. There is no bowel obstruction. There is no abnormal bowel wall thickening. There is sigmoid diverticulosis. There is no evidence of diverticulitis. The bladder, uterus and adnexal regions are unremarkable. The aorta is normal in caliber. There is a prominent aortocaval lymph node measuring 1.2 cm. There is lumbar hyperlordosis. There is minimal anterolisthesis of L4 on L5. IMPRESSION: 1. No convincing acute thoracic, abdominal or pelvic finding. 2. Sigmoid diverticulosis. 3. Moderate chronic appearing T11 compression fracture. 4. Multifocal atelectasis or pleural parenchymal scarring. Electronically signed by: Irene Mclean MD (05/10/2021 10:14 PM) [facility] DICTATED and SIGNED BY: IRENE MCLEAN MD DATE: 05/10/21 [id number] 0 Course & Med Decision Making: Course & Med Decision Making Pertinent Labs and Imaging studies reviewed. (See chart for details) This is 61-year-old female patient presented to the ED today with left lower rib pain, left upper abdomen pain, left flank pain and left mid back pain that began on after she slipped on ice and fell. CT of the chest, abdomen and pelvis, thoracic spine no acute findings, noted for diverticulosis, chronic appearing T12 compression fracture, multifocal atelectasis or pleural parenchymal scarring. Patient is up and ambulating with no difficulties she actually prefers to be in upright position standing and moving around then laying down. Offered incentive spirometry, she states she already has one from the . Discharged home. Follow-up with PCP in 1 week Mellissa Disclaimer: Mellissa Disclaimer: This electronic medical record was generated, in whole or in part, using a voice recognition dictation system. Departure Departure Impression: Primary Impression: Fall from standing Qualified Codes: W19.XXXA - Unspecified fall, initial encounter Additional Impressions: Diverticulosis Compression fracture of T11 vertebra Qualified Codes: S22.080A - Wedge compression fracture of T11-T12 vertebra, initial encounter for closed fracture Contusion of rib on left side Qualified Codes: S20.212A - Contusion of left front wall of thorax, initial encounter Back pain Qualified Codes: M54.6 - Pain in thoracic spine Disposition: 01 HOME / SELF CARE / HOMELESS Condition: STABLE Referrals: APRIL SEBASTIAN MD (PCP) Follow-up in 1 week Patient Instructions: Back Pain, Adult, [id number], Back, Compression Fracture, Fall Prevention and Home Safety Additional Instructions: You were seen in the emergency room after falling. Your CT of mid back, chest abdomen and pelvis was negative for any acute findings, you have a chronic T11 fracture. This needs to be followed up with your primary care doctor or the provided neurosurgeon. Try to ice and elevate to the affected areas. Take the prescribed medications as needed for your pain. Use the incentive spirometer you have at home to help improve your breathing. Scripts Hydrocodone Bit/Acetaminophen (HYDROCODONE-APAP 5-325 ) 1 Tab Tablet 1 TAB PO PRN Q6HRS PRN for PAIN, #24 TAB 0 Refills Prov: RADHA MERIDA APRN 05/10/21 RADHA MERIDA APRN May 10, 2021 22:23
--- NOTE | 2021-05-10 22:24 | RAD ---
EXAM: Thoracic spine CT without contrast. HISTORY: Back pain. Fall. TECHNIQUE: Computed tomographic images of the lumbar spine were obtained without contrast. Multiplana r reformatting was performed. *One or more of the following individualized dose reduction techniques were utilized for this examina tion: 1. Automated exposure control. 2. Adjustment of the mA and/or kV according to patient size. 3. Use of iterative reconstruction technique. COMPARISON: Chest CT obtained on the same date. FINDINGS: There is a moderate chronic T11 compression fracture with superior endplate Schmorl's node. There is no significant retropulsion of the cortex at this level. No acute fracture is seen. There i s multilevel endplate remodeling and anterior predominant osteophytosis. There are several endplate S chmorl's nodes. There is disc space calcification primarily at T8-T9. There is multilevel facet arthr opathy. There are shallow disc protrusions and disc osteophyte complexes at multiple levels. This inc ludes a left paracentral to lateral recess disc osteophyte complex at T8-T9. No severe stenosis is se en. There is a small amount of aspirated mucus within the trachea and right mainstem bronchus. There is bilateral mid and lower lung atelectasis. IMPRESSION: 1. No acute osseous finding. 2. Moderate chronic compression fracture of T11. 3. Multiple level degenerative change involving the thoracic spine, described above. 4. Small amount of aspirated mucus within the trachea and right mainstem bronchus. Please refer to th e chest CT on the same date for additional thoracic findings. Electronically signed by: Irene Mclean MD (05/10/2021 10:22 PM) [facility]
[2021-05-10] MEDS ORDERED: HYDR-2761 PO (22:57)
[2021-05-10 23:15] VITALS: BP 117/68
== END 2021-05-10 23:16 | disposition home or self-care (01) ==
LOC: ER 21:09
DX: S22.080A Wedge compression fracture of T11-T12 vertebra, initial encounter for closed fracture (principal); K57.90 Diverticulosis of intestine, part unspecified, without perforation or abscess without bleeding; S20.212A Contusion of left front wall of thorax, initial encounter; J45.909 Unspecified asthma, uncomplicated; I10 Essential (primary) hypertension; K21.9 Gastro-esophageal reflux disease without esophagitis; F17.200 Nicotine dependence, unspecified, uncomplicated; Z88.0 Allergy status to penicillin; Z88.2 Allergy status to sulfonamides; W00.0XXA Fall on same level due to ice and snow, initial encounter; Y93.89 Activity, other specified; Y92.89 Other specified places as the place of occurrence of the external cause; Y99.8 Other external cause status
CPT/HCPCS: 71250; 74176; 99284-25